=== PATIENT | female | born 2000 | race African-American/Black ===

== ENCOUNTER 2019-04-08 05:00 | Emergency (ER) | payer MEDICAID, OTHER ==
[~2019-04-08] VITALS: Ht 167.6 cm; Wt 70.8 kg
[2019-04-08 05:14] VITALS: BP 148/80
== END 2019-04-08 06:00 | disposition left against medical advice (07) ==
LOC: EDSEX 05:00 → ER 05:00
DX: R10.9 Unspecified abdominal pain (principal); Z53.21 Procedure and treatment not carried out due to patient leaving prior to being seen by health care provider